=== PATIENT | male | born 1960 | race Caucasian/White ===

== ENCOUNTER 2018-11-12 21:59 | Inpatient (IN) | payer OTHER ==
[~2018-11-12] VITALS: Ht 172.7 cm; Wt 87.0 kg
[2018-11-12] MEDS ORDERED: LORazepam 2 MG/ML, 1ML IVPush ONE (22:30)
[2018-11-12] MEDS ORDERED: SODIUM CHLORIDE FLUSH 10ML SYR IVF ONE (22:30)
[2018-11-12] MEDS ORDERED: LORazepam 2 MG/ML, 1ML ONE (22:37)
[2018-11-12 22:43] LABS: MEAN CORPUSCULAR HGB CONC 33.9 g/dL (33.2-36.2); MEAN CORPUSCULAR VOLUME 91.2 fL (81-97); MEAN PLATELET VOLUME 9.3 fL (7.4-10.4); PLATELET COUNT 105 x10^3/uL (130-400)
[2018-11-12 22:52] LABS: INTERNATIONAL NORMALIZED RATIO 1.24 (0.93-1.1); PROTHROMBIN TIME 12.9 Seconds (9.6-11.5)
[2018-11-12 22:54] LABS: ALANINE AMINOTRANSFERASE 46 U/L (12-78); ALBUMIN 2.9 g/dL (3.4-5.0); ANION GAP 8 mmol/L (5-15); CALCIUM 8.1 mg/dL (8.5-10.1); CHLORIDE 103 mmol/L (98-107); CREATININE 0.94 mg/dL (0.7-1.3)
[2018-11-12 22:56] LABS: ALKALINE PHOSPHATASE 182 U/L (45-117); BILIRUBIN,TOTAL 1.1 mg/dL (0.2-1.0); TOTAL PROTEIN 6.5 g/dL (6.4-8.2)
[2018-11-12 23:05] LABS: BASOPHILS # (AUTO) 0.03 x10^3/uL (0-0.1); BASOPHILS % (AUTO) 0 % (0-1); EOSINOPHILS # (AUTO) 0.24 x10^3/uL (0-0.4); EOSINOPHILS % (AUTO) 3 % (1-7); LYMPHOCYTES # (AUTO) 0.87 x10^3/uL (1-3.4); LYMPHOCYTES % (AUTO) 11 % (22-44); MD SCAN; MONOCYTES # (AUTO) 0.99 x10^3/uL (0.2-0.8); MONOCYTES % (AUTO) 12 % (2-9); NEUTROPHILS # (AUTO) 6.05 x10^3/uL (1.8-6.8); NEUTROPHILS % (AUTO) 74 % (42-75)
[2018-11-12] MEDS ORDERED: SODIUM CHLORIDE 0.9% 1,000 ML IV SCH (23:32)
[2018-11-13] MEDS ORDERED: ACETAMINOPHEN 325 MG TABLET PO PRN
[2018-11-13] MEDS ORDERED: ONDANSETRON 2MG/ML, 2ML IVPush PRN
[2018-11-13] MEDS ORDERED: LORazepam 2 MG/ML, 1ML IVPush PRN
[2018-11-13] MEDS ORDERED: ONDANSETRON ODT 4 MG PO PRN
[2018-11-13 00:30] VITALS: BP 141/83
[2018-11-13] MEDS ORDERED: THIAMINE 200 MG, MVI ADULT 10 ML, FOLIC ACID 1 MG in D5%-0.9% NACL 1,000 ML IV SCH (01:00)
[2018-11-13 02:58] VITALS: BP 141/83
[2018-11-13 05:41] LABS: ALBUMIN 2.6 g/dL (3.4-5.0); ANION GAP 7 mmol/L (5-15); CALCIUM 7.7 mg/dL (8.5-10.1); CHLORIDE 105 mmol/L (98-107)
[2018-11-13 05:45] LABS: ALANINE AMINOTRANSFERASE 42 U/L (12-78); ALKALINE PHOSPHATASE 163 U/L (45-117); BILIRUBIN,TOTAL 1.4 mg/dL (0.2-1.0); CREATININE 0.82 mg/dL (0.7-1.3); TOTAL PROTEIN 5.9 g/dL (6.4-8.2)
[2018-11-13 05:46] LABS: MEAN CORPUSCULAR HEMOGLOBIN 31.5 pg (27.5-34.5); MEAN CORPUSCULAR HGB CONC 34.2 g/dL (33.2-36.2); MEAN CORPUSCULAR VOLUME 92.1 fL (81-97); MEAN PLATELET VOLUME 9.2 fL (7.4-10.4); PLATELET COUNT 94 x10^3/uL (130-400); RED BLOOD COUNT 2.29 x10^6/uL (4.38-5.82); RED CELL DISTRIBUTION WIDTH 17.3 % (9.4-14.8)
[2018-11-13 06:15] LABS: BASOPHILS # (AUTO) 0.04 x10^3/uL (0-0.1); BASOPHILS % (AUTO) 1 % (0-1); EOSINOPHILS # (AUTO) 0.27 x10^3/uL (0-0.4); EOSINOPHILS % (AUTO) 4 % (1-7); LYMPHOCYTES # (AUTO) 0.68 x10^3/uL (1-3.4); LYMPHOCYTES % (AUTO) 9 % (22-44); MD SCAN; MONOCYTES % (AUTO) 14 % (2-9); NEUTROPHILS # (AUTO) 5.26 x10^3/uL (1.8-6.8); NEUTROPHILS % (AUTO) 73 % (42-75)
[2018-11-13] MEDS ORDERED: PANTOPRAZOLE 40 MG IV IVPush SCH (07:30)
[2018-11-13 07:59] VITALS: BP 128/76
[2018-11-13] MEDS ORDERED: LORazepam 0.5MG TABLET PO PRN (08:30)
[2018-11-13] MEDS ORDERED: LORazepam 1MG TABLET PO PRN ×2 (08:30)
[2018-11-13] MEDS ORDERED: LORazepam 2 MG/ML, 1ML IV PRN ×3 (08:30)
[2018-11-13] MEDS ORDERED: MULTIVITAMIN 1 TABLET PO SCH (10:00)
[2018-11-13] MEDS: LORazepam 2 MG/ML, 1ML IV PRN ×5 (10:03→22:19)
[2018-11-13 14:00] VITALS: BP 136/77
[2018-11-13 20:04] VITALS: BP 156/97
[2018-11-14] MEDS: LORazepam 2 MG/ML, 1ML IV PRN ×5 (00:20→07:50)
[2018-11-14 01:10] VITALS: BP 191/91
[2018-11-14] MEDS ORDERED: CHLORDIAZEPOXIDE 25 MG CAPSULE PO PRN (01:30)
[2018-11-14] MEDS ORDERED: DIAZEPAM 5 MG/ML, 2ML IV PRN (02:00)
[2018-11-14] MEDS ORDERED: PANTOPROZOLE 40MG TABLET PO SCH (06:00)
[2018-11-14 07:26] VITALS: BP 168/95
[2018-11-14] MEDS ORDERED: DIAZEPAM 5 MG/ML, 2ML IV SCH (09:00)
[2018-11-14] MEDS ORDERED: PHARMACY INSTRUCTION MC PRN ×4 (09:00)
[2018-11-14] MEDS ORDERED: CHLORDIAZEPOXIDE 25 MG CAPSULE PO SCH (09:00)
[2018-11-14] MEDS ORDERED: PHENOBARBITAL SODIUM 680 MG in SODIUM CHLORIDE 0.9% 50 ML IVPB ONE (09:30)
[2018-11-14] MEDS ORDERED: PHENOBARBITAL ETOH DETOX PER PHARMACY MC PRN (11:00)
[2018-11-14] MEDS: POTASSIUM CHLORIDE 20 MEQ, MAGNESIUM SULFATE 1 GM, THIAMINE 200 MG, FOLIC ACID 1 MG, MV... IV SCH (11:48)
[2018-11-14] MEDS ORDERED: PHENOBARBITAL SODIUM 130 MG/ML, 1ML IV SCH (19:00)
[2018-11-15 04:00] VITALS: BP 151/75
[2018-11-15 04:49] LABS: BASOPHILS # (AUTO) 0.06 x10^3/uL (0-0.1); BASOPHILS % (AUTO) 1 % (0-1); EOSINOPHILS % (AUTO) 4 % (1-7); LYMPHOCYTES # (AUTO) 0.82 x10^3/uL (1-3.4); LYMPHOCYTES % (AUTO) 10 % (22-44); MD NO; MEAN CORPUSCULAR HEMOGLOBIN 31.1 pg (27.5-34.5); MEAN CORPUSCULAR HGB CONC 33.4 g/dL (33.2-36.2); MEAN CORPUSCULAR VOLUME 93.3 fL (81-97); MEAN PLATELET VOLUME 9.2 fL (7.4-10.4); MONOCYTES % (AUTO) 16 % (2-9); NEUTROPHILS # (AUTO) 5.95 x10^3/uL (1.8-6.8); NEUTROPHILS % (AUTO) 71 % (42-75); PLATELET COUNT 124 x10^3/uL (130-400); RED BLOOD COUNT 2.69 x10^6/uL (4.38-5.82); RED CELL DISTRIBUTION WIDTH 18.4 % (9.4-14.8)
[2018-11-15 05:00] LABS: CHLORIDE 106 mmol/L (98-107)
[2018-11-15 05:07] LABS: ALANINE AMINOTRANSFERASE 42 U/L (12-78); ALBUMIN 2.6 g/dL (3.4-5.0); ALKALINE PHOSPHATASE 158 U/L (45-117); ANION GAP 6 mmol/L (5-15); BILIRUBIN,TOTAL 1.3 mg/dL (0.2-1.0); CALCIUM 7.6 mg/dL (8.5-10.1); CREATININE 0.81 mg/dL (0.7-1.3); TOTAL PROTEIN 6.1 g/dL (6.4-8.2)
[2018-11-15] MEDS ORDERED: PHENOBARBITAL SODIUM 65 MG/ML, 1ML IV SCH (07:00)
[2018-11-15] MEDS ORDERED: PHENOBARBITAL SODIUM 65 MG/ML, 1ML IM SCH (08:00)
[2018-11-15] MEDS: POTASSIUM CHLORIDE 20 MEQ, MAGNESIUM SULFATE 1 GM, THIAMINE 200 MG, FOLIC ACID 1 MG, MV... IV SCH (09:26)
[2018-11-15 11:38] VITALS: BP 121/75
[2018-11-15 18:28] VITALS: BP 119/72
[2018-11-15] MEDS: PHENOBARBITAL SODIUM 65 MG/ML, 1ML IM SCH (18:38)
[2018-11-16 00:31] VITALS: BP 123/77
[2018-11-16 05:52] LABS: ANION GAP 7 mmol/L (5-15); CALCIUM 7.8 mg/dL (8.5-10.1); CHLORIDE 108 mmol/L (98-107)
[2018-11-16 05:54] LABS: CREATININE 0.77 mg/dL (0.7-1.3)
[2018-11-16 08:00] VITALS: BP 117/69
[2018-11-16] MEDS ORDERED: POTASSIUM CHLORIDE 10% 40 MEQ/30 ML UDC PO ONE (08:00)
[2018-11-16] MEDS: PHENOBARBITAL SODIUM 65 MG/ML, 1ML IM SCH (09:38)
[2018-11-16] MEDS: PANTOPRAZOLE 20MG TABLET PO SCH ×2 (09:39→21:19)
[2018-11-16] MEDS: LACTULOSE 10 GM/15 ML UDC PO SCH ×2 (09:39→21:19)
[2018-11-16] MEDS: POTASSIUM CHLORIDE 20 MEQ, MAGNESIUM SULFATE 1 GM, THIAMINE 200 MG, FOLIC ACID 1 MG, MV... IV SCH (09:39)
[2018-11-16 17:15] VITALS: BP 116/74
[2018-11-16 19:04] VITALS: BP 119/77
[2018-11-16] MEDS: PHENOBARBITAL 20 MG/5 ML ORAL SOL PO SCH (21:19)
[2018-11-17 00:13] VITALS: BP 127/76
[2018-11-17 05:52] LABS: ALBUMIN 2.6 g/dL (3.4-5.0); ANION GAP 6 mmol/L (5-15); CALCIUM 7.4 mg/dL (8.5-10.1); CHLORIDE 108 mmol/L (98-107)
[2018-11-17 05:57] LABS: ALANINE AMINOTRANSFERASE 45 U/L (12-78); ALKALINE PHOSPHATASE 205 U/L (45-117); BILIRUBIN,TOTAL 1.3 mg/dL (0.2-1.0); TOTAL PROTEIN 6.3 g/dL (6.4-8.2)
[2018-11-17 06:09] LABS: BASOPHILS # (AUTO) 0.06 x10^3/uL (0-0.1); BASOPHILS % (AUTO) 1 % (0-1); EOSINOPHILS # (AUTO) 0.26 x10^3/uL (0-0.4); EOSINOPHILS % (AUTO) 4 % (1-7); LYMPHOCYTES # (AUTO) 0.83 x10^3/uL (1-3.4); LYMPHOCYTES % (AUTO) 11 % (22-44); MD SCAN; MEAN CORPUSCULAR HEMOGLOBIN 30.8 pg (27.5-34.5); MEAN CORPUSCULAR HGB CONC 33.7 g/dL (33.2-36.2); MEAN CORPUSCULAR VOLUME 91.5 fL (81-97); MEAN PLATELET VOLUME 9.5 fL (7.4-10.4); MONOCYTES # (AUTO) 1.36 x10^3/uL (0.2-0.8); MONOCYTES % (AUTO) 18 % (2-9); NEUTROPHILS # (AUTO) 4.88 x10^3/uL (1.8-6.8); NEUTROPHILS % (AUTO) 66 % (42-75); PLATELET COUNT 141 x10^3/uL (130-400); RED BLOOD COUNT 2.64 x10^6/uL (4.38-5.82)
[2018-11-17] MEDS ORDERED: ACETAMINOPHEN 325 MG TABLET PO PRN (09:00)
[2018-11-17] MEDS ORDERED: ACETAMINOPHEN 325 MG TABLET ONE (09:04)
[2018-11-17 09:16] VITALS: BP 109/71
[2018-11-17] MEDS: PHENOBARBITAL 20 MG/5 ML ORAL SOL PO SCH ×2 (09:18→22:20)
[2018-11-17] MEDS: THIAMINE 100MG TABLET PO SCH (09:18)
[2018-11-17] MEDS: LACTULOSE 10 GM/15 ML UDC PO SCH ×3 (09:18→22:20)
[2018-11-17] MEDS: FOLIC ACID 1 MG TABLET PO SCH (09:19)
[2018-11-17] MEDS: MULTIVITAMIN 1 TABLET PO SCH (09:19)
[2018-11-17] MEDS: PANTOPRAZOLE 20MG TABLET PO SCH ×2 (09:19→22:20)
[2018-11-17 13:22] VITALS: BP 101/68
[2018-11-17 14:33] LABS: OCCULT BLOOD POSITIVE (NEGATIVE)
[2018-11-17 18:50] VITALS: BP 125/69
[2018-11-18 01:03] VITALS: BP 121/74
[2018-11-18 06:10] LABS: MEAN CORPUSCULAR HEMOGLOBIN 29.5 pg (27.5-34.5); MEAN CORPUSCULAR HGB CONC 32.6 g/dL (33.2-36.2); MEAN CORPUSCULAR VOLUME 90.3 fL (81-97); MEAN PLATELET VOLUME 9.4 fL (7.4-10.4); PLATELET COUNT 152 x10^3/uL (130-400); RED BLOOD COUNT 2.68 x10^6/uL (4.38-5.82); RED CELL DISTRIBUTION WIDTH 17.9 % (9.4-14.8)
[2018-11-18 06:20] LABS: ALBUMIN 2.7 g/dL (3.4-5.0); ANION GAP 6 mmol/L (5-15); CALCIUM 7.9 mg/dL (8.5-10.1); CHLORIDE 107 mmol/L (98-107); CREATININE 0.86 mg/dL (0.7-1.3)
[2018-11-18 06:44] LABS: BASOPHILS # (AUTO) 0.07 x10^3/uL (0-0.1); BASOPHILS % (AUTO) 1 % (0-1); EOSINOPHILS # (AUTO) 0.19 x10^3/uL (0-0.4); EOSINOPHILS % (AUTO) 2 % (1-7); LYMPHOCYTES # (AUTO) 0.79 x10^3/uL (1-3.4); LYMPHOCYTES % (AUTO) 10 % (22-44); MD SCAN; MONOCYTES # (AUTO) 1.53 x10^3/uL (0.2-0.8); MONOCYTES % (AUTO) 20 % (2-9); NEUTROPHILS # (AUTO) 5.11 x10^3/uL (1.8-6.8); NEUTROPHILS % (AUTO) 67 % (42-75)
[2018-11-18 07:22] VITALS: BP 117/70
[2018-11-18] MEDS: PHENOBARBITAL 20 MG/5 ML ORAL SOL PO SCH ×2 (08:11→23:29)
[2018-11-18] MEDS: LACTULOSE 10 GM/15 ML UDC PO SCH ×3 (08:11→22:21)
[2018-11-18] MEDS: THIAMINE 100MG TABLET PO SCH (08:11)
[2018-11-18] MEDS: FOLIC ACID 1 MG TABLET PO SCH (08:11)
[2018-11-18] MEDS: PANTOPRAZOLE 20MG TABLET PO SCH ×2 (08:11→22:21)
[2018-11-18] MEDS: MULTIVITAMIN 1 TABLET PO SCH (08:11)
[2018-11-18 12:26] VITALS: BP 110/68
[2018-11-18] MEDS ORDERED: IRON SUCROSE COMPLEX 100MG/5ML IV ONE (12:30)
[2018-11-18 18:50] VITALS: BP 132/78
[2018-11-18] MEDS ORDERED: PHENOBARBITAL 20 MG/5 ML ORAL SOL PO SCH (19:00)
[2018-11-19 01:00] VITALS: BP 145/90
[2018-11-19 07:32] VITALS: BP 131/92
[2018-11-19] MEDS: MULTIVITAMIN 1 TABLET PO SCH (08:18)
[2018-11-19] MEDS: LACTULOSE 10 GM/15 ML UDC PO SCH (08:18)
[2018-11-19] MEDS: PANTOPRAZOLE 20MG TABLET PO SCH (08:19)
[2018-11-19] MEDS: FOLIC ACID 1 MG TABLET PO SCH (08:19)
[2018-11-19] MEDS: THIAMINE 100MG TABLET PO SCH (08:19)
[2018-11-19] MEDS: PHENOBARBITAL 20 MG/5 ML ORAL SOL PO SCH (12:29)
[2018-11-19 12:37] VITALS: BP 115/72
[2018-11-19 13:28] LABS: ALANINE AMINOTRANSFERASE 48 U/L (12-78); ALBUMIN 2.8 g/dL (3.4-5.0); ANION GAP 8 mmol/L (5-15); CALCIUM 8.1 mg/dL (8.5-10.1); CHLORIDE 105 mmol/L (98-107); CREATININE 0.99 mg/dL (0.7-1.3)
[2018-11-19 13:30] LABS: ALKALINE PHOSPHATASE 218 U/L (45-117); BILIRUBIN,TOTAL 0.7 mg/dL (0.2-1.0); TOTAL PROTEIN 6.9 g/dL (6.4-8.2)
[2018-11-19] MEDS ORDERED: LACT10SO5 PO (14:01)
[2018-11-19] MEDS ORDERED: THIA100T67 PO (14:01)
[2018-11-19] MEDS ORDERED: PANT20TA3 PO (14:01)
[2018-11-19] MEDS ORDERED: FERR-51 PO (14:02)
[2018-11-19] MEDS ORDERED: PHENOBARBITAL 20 MG/5 ML ORAL SOL PO SCH ×2 (19:00→21:00)
== END 2018-11-19 14:57 | disposition left against medical advice (07) | DRG 811 ==
LOC: SUATTDRO 23:23 → ED 23:28 → EDIP 23:32 → ED 23:59 → 4NOR 11-13 00:40 → CCU 11-14 08:32 → 3NE 11-15 11:32
PROVIDERS: ADMIT Hospitalist; ATTEND Hospitalist
DX: D50.9 Iron deficiency anemia, unspecified (principal); G93.41 Metabolic encephalopathy; E87.1 Hypo-osmolality and hyponatremia; F10.231 Alcohol dependence with withdrawal delirium; D53.9 Nutritional anemia, unspecified; K70.40 Alcoholic hepatic failure without coma; D69.6 Thrombocytopenia, unspecified; E87.6 Hypokalemia; I10 Essential (primary) hypertension; K21.9 Gastro-esophageal reflux disease without esophagitis; K76.0 Fatty (change of) liver, not elsewhere classified; Z78.1 Physical restraint status; Z86.010 Personal history of colon polyps; Z91.14 Patient's other noncompliance with medication regimen; Y90.9 Presence of alcohol in blood, level not specified; Z53.21 Procedure and treatment not carried out due to patient leaving prior to being seen by health care provider
CPT/HCPCS: 36415; 99285; J7042; 71045; 76705; 80048; 80053; 80307; 82040; 82140; 82272; 82728; 83540; 83550; 83735; 84100; 84466; 85025; 85610; 85730; 86850; 86900; 87081; 96374; G0378; J1756; J2560; J3360; J3411; J3475; J3480; C9113; J2060; J7030

== ENCOUNTER 2018-11-19 20:03 | Emergency (ER) | payer OTHER ==
[~2018-11-19] VITALS: Ht 172.7 cm; Wt 92.6 kg
[~2018-11-19 20:03] MED LIST: FERR-51 PO; LACT10SO5 PO; PANT20TA3 PO; THIA100T67 PO
[2018-11-19] MEDS ORDERED: SODIUM CHLORIDE FLUSH 10ML SYR IVF ONE (20:30)
--- NOTE | 2018-11-19 20:54 | NUR ---
ASSUMED CARE OF PATIENT. PATIENT REPORTS HE LEFT AMA TODAY. PT WAS ADMITTED FOR ETOH WD. PT SAID HE WENT HOME AND FELT LIKE HE WAS WOBBLY AND FORGETTING WHERE HE PUT THINGS. VS STABLE. CARDIAC MONTIOR ON. NSR NOTED. CALL LIGHT IN PLACE. WILL CONTINUE TO MONITOR.
[2018-11-19 21:21] LABS: BASOPHILS # (AUTO) 0.01 x10^3/uL (0-0.1); BASOPHILS % (AUTO) 0 % (0-1); EOSINOPHILS # (AUTO) 0.24 x10^3/uL (0-0.4); EOSINOPHILS % (AUTO) 3 % (1-7); LYMPHOCYTES # (AUTO) 0.67 x10^3/uL (1-3.4); LYMPHOCYTES % (AUTO) 8 % (22-44); MD NO; MEAN CORPUSCULAR HEMOGLOBIN 28.6 pg (27.5-34.5); MEAN CORPUSCULAR HGB CONC 31.6 g/dL (33.2-36.2); MEAN CORPUSCULAR VOLUME 90.3 fL (81-97); MEAN PLATELET VOLUME 9.7 fL (7.4-10.4); MONOCYTES # (AUTO) 1.16 x10^3/uL (0.2-0.8); MONOCYTES % (AUTO) 14 % (2-9); NEUTROPHILS # (AUTO) 6.12 x10^3/uL (1.8-6.8); NEUTROPHILS % (AUTO) 75 % (42-75); PLATELET COUNT 207 x10^3/uL (130-400); RED BLOOD COUNT 2.89 x10^6/uL (4.38-5.82); RED CELL DISTRIBUTION WIDTH 19.4 % (9.4-14.8)
[2018-11-19 21:29] LABS: ALANINE AMINOTRANSFERASE 48 U/L (12-78); ALBUMIN 2.8 g/dL (3.4-5.0); ANION GAP 9 mmol/L (5-15); CALCIUM 8.1 mg/dL (8.5-10.1); CHLORIDE 107 mmol/L (98-107)
[2018-11-19 21:32] LABS: ALKALINE PHOSPHATASE 206 U/L (45-117); BILIRUBIN,TOTAL 0.6 mg/dL (0.2-1.0); CREATININE 0.97 mg/dL (0.7-1.3); TOTAL PROTEIN 6.7 g/dL (6.4-8.2)
--- NOTE | 2018-11-19 21:51 | NUR ---
pt resting in room. no acute distress noted. call light in place. will continue to monitor.
--- NOTE | 2018-11-19 22:34 | NUR ---
DR ELIZABETH IN ROOM
--- NOTE | 2018-11-19 23:02 | NUR ---
PT ABLE TO WALK AROUND ROOM, DRESS SELF. PT IS A&O X4. VS STABLE. MD AWARE. WILL CONTINUE TO MONITOR.
--- NOTE | 2018-11-19 23:25 | NUR ---
PT ON THE PHONE TALKING WITH HIS EXWIFE PT NOW READY FOR A DISCHARGE.
[2018-11-19 23:42] VITALS: BP 121/72
== END 2018-11-19 23:44 | disposition home or self-care (01) ==
LOC: ED 22:51
DX: F10.20 Alcohol dependence, uncomplicated (principal); D63.8 Anemia in other chronic diseases classified elsewhere; I10 Essential (primary) hypertension; Y90.9 Presence of alcohol in blood, level not specified
CPT/HCPCS: 36415; 80053; 80307; 82140; 83690; 85025; 99283

== ENCOUNTER 2019-07-01 19:02 | Emergency (ER) | payer OTHER ==
[~2019-07-01] VITALS: Ht 172.7 cm; Wt 96.9 kg
--- NOTE | 2019-07-01 19:26 | NUR ---
PT TO ED FOR BLE EDEMA AND ERYTHEMA. PT ALSO EXHIBITS GENERALIZED SCABBING AND ERYTHEMA OVER BUE AND BLE AND TRUNK. PER PT AND FAMILY, PT RESTARTED DRINKING HEAVILY IN FEBRUARY/MARCH AFTER BEING SOBER FOR 3 MONTHS. PT DRINKS 7-8 BEERS/DAY, LAST DRINK 30 MIN AGO. PT CONNECTED TO MONITORS. VSS. AWAITING EDMD ASSESSMENT.
--- NOTE | 2019-07-01 20:00 | NUR ---
pt to imaging.
--- NOTE | 2019-07-01 20:16 | NUR ---
laboratory manager to bs.
[2019-07-01 20:31] LABS: BASOPHILS # (AUTO) 0.23 x10^3/uL (0-0.1); BASOPHILS % (AUTO) 3 % (0-1); EOSINOPHILS # (AUTO) 0.45 x10^3/uL (0-0.4); EOSINOPHILS % (AUTO) 5 % (1-7); LYMPHOCYTES # (AUTO) 0.93 x10^3/uL (1-3.4); LYMPHOCYTES % (AUTO) 10 % (22-44); MD NO; MEAN CORPUSCULAR HEMOGLOBIN 27.7 pg (27.5-34.5); MEAN CORPUSCULAR HGB CONC 32.3 g/dL (33.2-36.2); MEAN CORPUSCULAR VOLUME 85.7 fL (81-97); MEAN PLATELET VOLUME 8.4 fL (7.4-10.4); MONOCYTES # (AUTO) 1.16 x10^3/uL (0.2-0.8); MONOCYTES % (AUTO) 13 % (2-9); NEUTROPHILS # (AUTO) 6.19 x10^3/uL (1.8-6.8); NEUTROPHILS % (AUTO) 69 % (42-75); PLATELET COUNT 177 x10^3/uL (130-400); RED BLOOD COUNT 3.95 x10^6/uL (4.38-5.82); RED CELL DISTRIBUTION WIDTH 19.9 % (9.4-14.8)
[2019-07-01 20:38] LABS: ALANINE AMINOTRANSFERASE 37 U/L (12-78); ALBUMIN 2.6 g/dL (3.4-5.0); ANION GAP 9 mmol/L (5-15); CALCIUM 7.8 mg/dL (8.5-10.1); CHLORIDE 105 mmol/L (98-107); CREATININE 0.72 mg/dL (0.7-1.3)
[2019-07-01 20:39] LABS: INTERNATIONAL NORMALIZED RATIO 1.26 (0.93-1.1); PROTHROMBIN TIME 13.1 Seconds (9.6-11.5)
[2019-07-01 20:40] LABS: ALKALINE PHOSPHATASE 232 U/L (45-117); BILIRUBIN,TOTAL 0.9 mg/dL (0.2-1.0); TOTAL PROTEIN 7.2 g/dL (6.4-8.2)
--- NOTE | 2019-07-01 20:42 | NUR ---
new orders for add on labs received at this time. pt resting in room wtih family at bs. vs. no needs expressed. call light within reach. awaiting labs an us resutls.
[2019-07-01 20:45] VITALS: BP 124/77
--- NOTE | 2019-07-01 21:00 | NUR ---
all results back at this time. chart up for recheck.
== END 2019-07-01 21:41 | disposition home or self-care (01) ==
LOC: ED 21:15
DX: R60.0 Localized edema (principal); K70.30 Alcoholic cirrhosis of liver without ascites; L03.116 Cellulitis of left lower limb; L03.115 Cellulitis of right lower limb; F10.20 Alcohol dependence, uncomplicated; D53.9 Nutritional anemia, unspecified; I10 Essential (primary) hypertension
CPT/HCPCS: 36415; 71046; 80053; 85025; 85610; 85730; 93005; 99284

== ENCOUNTER 2019-08-23 17:50 | Inpatient (IN) | payer OTHER ==
[~2019-08-23] VITALS: Ht 172.7 cm; Wt 95.9 kg
[~2019-08-23 17:50] MED LIST changes: +LACT10SO24 PO; -LACT10SO5 PO
[2019-08-23] MEDS ORDERED: SODIUM CHLORIDE FLUSH 10ML SYR IVF ONE (18:30)
[2019-08-23] MEDS ORDERED: MAGNESIUM SULFATE 1 GM, THIAMINE 100 MG, FOLIC ACID 1 MG, MVI ADULT 10 ML in SODIUM CHL... IV ONE (18:30)
--- NOTE | 2019-08-23 18:54 | NUR ---
REPORT GIVEN TO SAM
[2019-08-23 18:58] LABS: INTERNATIONAL NORMALIZED RATIO 1.26 (0.93-1.1); PROTHROMBIN TIME 13.1 Seconds (9.6-11.5)
--- NOTE | 2019-08-23 19:00 | NUR ---
THIS IS A 59Y M THAT COMES IN FOR ETOH WITHDRAWL PT STS HE WANTS TO QUIT DRINKING. PT DRINKS ABOUT 6 BEERS DAILY LAST DRINK WAS "A FEW HOURS AGO." PT EDUCATED ON NEED FOR URINE SAMPLE, STS JUST WENT AND CAN'T GO AGAIN. PT CONNECTED TO ALL MONITORING VSS, CALL LIGHT IN REACH, AT BEDSIDE. NO FURTHER NEEDS EXPRESSED AT THIS TIME
[2019-08-23 19:01] LABS: ALANINE AMINOTRANSFERASE 25 U/L (12-78); ALBUMIN 2.5 g/dL (3.4-5.0); ANION GAP 7 mmol/L (5-15); CALCIUM 7.8 mg/dL (8.5-10.1); CHLORIDE 106 mmol/L (98-107); CREATININE 0.78 mg/dL (0.7-1.3)
[2019-08-23 19:05] LABS: ALKALINE PHOSPHATASE 194 U/L (45-117); BILIRUBIN,TOTAL 0.7 mg/dL (0.2-1.0); TOTAL PROTEIN 6.9 g/dL (6.4-8.2)
[2019-08-23 19:09] LABS: MD YES; MEAN CORPUSCULAR HEMOGLOBIN 24.4 pg (27.5-34.5); MEAN CORPUSCULAR HGB CONC 31.1 g/dL (33.2-36.2); MEAN CORPUSCULAR VOLUME 78.3 fL (81-97); MEAN PLATELET VOLUME 8.5 fL (7.4-10.4); PLATELET COUNT 185 x10^3/uL (130-400); RED BLOOD COUNT 3.11 x10^6/uL (4.38-5.82); RED CELL DISTRIBUTION WIDTH 21.3 % (9.4-14.8)
[2019-08-23 19:25] LABS: BAND#(MANUAL) 0.13 x10^3/uL; BANDS%(MANUAL) 2 % (0-7); BASOS#(MANUAL) 0.19 x10^3/uL (0-0.1); BASOS% (MANUAL) 3 % (0-1); EOS#(MANUAL) 0.44 x10^3/uL (0.0-0.4); EOS% (MANUAL) 7 % (1-7); LYMPH#(MANUAL) 0.76 x10^3/uL (1-3.4); LYMPHS% (MANUAL) 12 % (22-44); MONOS#(MANUAL) 0.69 x10^3/uL (0.3-2.7); MONOS% (MANUAL) 11 % (2-9); SEGS% (MANUAL) 65 % (42-75)
[2019-08-23 19:26] LABS: ANISOCYTOSIS 1+; MICROCYTOSIS 1+
[2019-08-23 19:27] LABS: HYPOCHROMIA 1+; TARGET CELLS 1+
[2019-08-23] MEDS ORDERED: FUROSEMIDE 40 MG/4 ML ONE (19:27)
[2019-08-23 19:28] LABS: <PLATELET ESTIMATE> ADEQUATE; <PLT MORPHOLOGY> NORMAL PLT MORPH; OVALOCYTES 1+
[2019-08-23] MEDS ORDERED: FUROSEMIDE 40 MG/4 ML IV ONE (19:30)
--- NOTE | 2019-08-23 19:33 | NUR ---
PT TO US AT THIS TIME
[2019-08-23 19:34] LABS: ABSOLUTE RETICS # 0.058 x10^6/uL (0.5-1.5); RED BLOOD COUNT 3.12 x10^6/uL (4.38-5.82); RETICULOCYTE COUNT % 1.87 % (0.5-1.5)
[2019-08-23 21:33] VITALS: BP 137/80
[2019-08-23 22:47] LABS: MICROSCOPIC NOT IND
[2019-08-23 22:55] LABS: CULTURE INDICATED? NO
[2019-08-23] MEDS ORDERED: POTASSIUM CHLORIDE 20 MEQ, MAGNESIUM SULFATE 2 GM, THIAMINE 200 MG, MVI ADULT 10 ML, FO... IV SCH (23:48)
[2019-08-24] VITALS (7 sets, daily range): BP systolic 124–142; BP diastolic 63–78
[2019-08-24] MEDS ORDERED: LABETALOL 5 MG/ML SYR. (IV ONLY) IVPush PRN
[2019-08-24] MEDS ORDERED: ONDANSETRON 2MG/ML, 2ML IVPush PRN
[2019-08-24] MEDS: PANTOPROZOLE 40MG TABLET PO SCH ×3 (00:53→17:15)
[2019-08-24 06:47] LABS: MEAN CORPUSCULAR HEMOGLOBIN 24.1 pg (27.5-34.5); MEAN CORPUSCULAR HGB CONC 30.5 g/dL (33.2-36.2); MEAN CORPUSCULAR VOLUME 78.8 fL (81-97); MEAN PLATELET VOLUME 8.8 fL (7.4-10.4); PLATELET COUNT 154 x10^3/uL (130-400); RED BLOOD COUNT 2.82 x10^6/uL (4.38-5.82); RED CELL DISTRIBUTION WIDTH 21.7 % (9.4-14.8)
[2019-08-24 06:50] LABS: CHLORIDE 107 mmol/L (98-107)
[2019-08-24 06:51] LABS: ALANINE AMINOTRANSFERASE 22 U/L (12-78); ALBUMIN 2.2 g/dL (3.4-5.0); ANION GAP 9 mmol/L (5-15); CALCIUM 7.3 mg/dL (8.5-10.1); CREATININE 0.72 mg/dL (0.7-1.3)
[2019-08-24 06:53] LABS: ALKALINE PHOSPHATASE 167 U/L (45-117); BILIRUBIN,TOTAL 1.2 mg/dL (0.2-1.0); TOTAL PROTEIN 6.3 g/dL (6.4-8.2)
[2019-08-24] MEDS ORDERED: LORazepam 1MG TABLET PO PRN ×2 (07:30)
[2019-08-24] MEDS ORDERED: LORazepam 2 MG/ML, 1ML IV PRN ×5 (07:30)
[2019-08-24] MEDS ORDERED: IRON SUCROSE COMPLEX 100MG/5ML ONE (07:46)
[2019-08-24 07:52] LABS: BASOPHILS # (AUTO) 0.04 x10^3/uL (0-0.1); BASOPHILS % (AUTO) 1 % (0-1); EOSINOPHILS # (AUTO) 0.29 x10^3/uL (0-0.4); EOSINOPHILS % (AUTO) 4 % (1-7); LYMPHOCYTES # (AUTO) 0.92 x10^3/uL (1-3.4); LYMPHOCYTES % (AUTO) 14 % (22-44); MD MORPH REVIEW ONLY; MONOCYTES # (AUTO) 1.12 x10^3/uL (0.2-0.8); MONOCYTES % (AUTO) 17 % (2-9); NEUTROPHILS # (AUTO) 4.34 x10^3/uL (1.8-6.8); NEUTROPHILS % (AUTO) 65 % (42-75)
[2019-08-24] MEDS ORDERED: FERROUS GLUCONATE 324 MG TABLET PO SCH (08:00)
[2019-08-24] MEDS: IRON SUCROSE COMPLEX 100MG/5ML IV SCH (08:07)
[2019-08-24 08:13] LABS: ANISOCYTOSIS 2+; HYPOCHROMIA 2+; MICROCYTOSIS 1+; OVALOCYTES 1+
[2019-08-24 08:14] LABS: <PLATELET ESTIMATE> ADEQUATE; <PLT MORPHOLOGY> NORMAL PLT MORPH
[2019-08-24] MEDS: LORazepam 0.5MG TABLET PO PRN ×2 (11:58→16:43)
[2019-08-24 15:06] LABS: OCCULT BLOOD NEGATIVE (NEGATIVE)
[2019-08-25] MEDS: MAGNESIUM SULFATE 2 GM, THIAMINE 200 MG, MVI ADULT 10 ML, FOLIC ACID 1 MG in D5%-0.9% N... IV SCH (00:23)
[2019-08-25 01:37] VITALS: BP 129/81
[2019-08-25] MEDS: LORazepam 1MG TABLET PO PRN ×5 (01:45→21:48)
[2019-08-25 04:28] LABS: ALBUMIN 2.3 g/dL (3.4-5.0); ANION GAP 6 mmol/L (5-15); CALCIUM 7.5 mg/dL (8.5-10.1); CHLORIDE 108 mmol/L (98-107)
[2019-08-25 04:31] LABS: ALANINE AMINOTRANSFERASE 25 U/L (12-78); ALKALINE PHOSPHATASE 178 U/L (45-117); BILIRUBIN,TOTAL 1.1 mg/dL (0.2-1.0); CREATININE 0.78 mg/dL (0.7-1.3); TOTAL PROTEIN 6.4 g/dL (6.4-8.2)
[2019-08-25 04:32] LABS: MEAN CORPUSCULAR HGB CONC 31.4 g/dL (33.2-36.2); MEAN CORPUSCULAR VOLUME 79.4 fL (81-97); MEAN PLATELET VOLUME 8.8 fL (7.4-10.4); PLATELET COUNT 138 x10^3/uL (130-400); RED BLOOD COUNT 3.16 x10^6/uL (4.38-5.82); RED CELL DISTRIBUTION WIDTH 22.1 % (9.4-14.8)
[2019-08-25 05:41] LABS: BASOPHILS # (AUTO) 0.82 x10^3/uL (0-0.1); BASOPHILS % (AUTO) 12 % (0-1); EOSINOPHILS % (AUTO) 4 % (1-7); LYMPHOCYTES # (AUTO) 0.83 x10^3/uL (1-3.4); LYMPHOCYTES % (AUTO) 12 % (22-44); MD SCAN; MONOCYTES # (AUTO) 0.92 x10^3/uL (0.2-0.8); MONOCYTES % (AUTO) 13 % (2-9); NEUTROPHILS # (AUTO) 4.19 x10^3/uL (1.8-6.8); NEUTROPHILS % (AUTO) 59 % (42-75)
[2019-08-25 07:51] VITALS: BP 142/77
[2019-08-25] MEDS ORDERED: POTASSIUM CHLORIDE 20 MEQ TAB.ER.PRT PO ONE (08:30)
[2019-08-25] MEDS: IRON SUCROSE COMPLEX 100MG/5ML IV SCH (10:04)
[2019-08-25] MEDS: PANTOPROZOLE 40MG TABLET PO SCH ×2 (10:05→17:47)
[2019-08-25 16:06] VITALS: BP 114/69
[2019-08-25] MEDS: LORazepam 0.5MG TABLET PO PRN (17:47)
[2019-08-25 19:52] VITALS: BP 124/78
[2019-08-26 01:20] VITALS: BP 118/71
[2019-08-26] MEDS: MAGNESIUM SULFATE 2 GM, THIAMINE 200 MG, MVI ADULT 10 ML, FOLIC ACID 1 MG in D5%-0.9% N... IV SCH (02:01)
[2019-08-26] MEDS: LORazepam 1MG TABLET PO PRN (02:15)
[2019-08-26 06:47] LABS: MEAN CORPUSCULAR HEMOGLOBIN 24.7 pg (27.5-34.5); MEAN CORPUSCULAR HGB CONC 30.7 g/dL (33.2-36.2); MEAN CORPUSCULAR VOLUME 80.6 fL (81-97); MEAN PLATELET VOLUME 9.4 fL (7.4-10.4); PLATELET COUNT 127 x10^3/uL (130-400); RED BLOOD COUNT 3.04 x10^6/uL (4.38-5.82); RED CELL DISTRIBUTION WIDTH 22.3 % (9.4-14.8)
[2019-08-26 07:00] LABS: ANION GAP 8 mmol/L (5-15); CALCIUM 7.6 mg/dL (8.5-10.1); CHLORIDE 107 mmol/L (98-107)
[2019-08-26 07:01] LABS: CREATININE 0.85 mg/dL (0.7-1.3)
[2019-08-26 07:39] LABS: BASOPHILS # (AUTO) 0.01 x10^3/uL (0-0.1); BASOPHILS % (AUTO) 0 % (0-1); EOSINOPHILS # (AUTO) 0.54 x10^3/uL (0-0.4); EOSINOPHILS % (AUTO) 7 % (1-7); LYMPHOCYTES # (AUTO) 0.96 x10^3/uL (1-3.4); LYMPHOCYTES % (AUTO) 12 % (22-44); MD SCAN; MONOCYTES # (AUTO) 1.04 x10^3/uL (0.2-0.8); MONOCYTES % (AUTO) 13 % (2-9); NEUTROPHILS # (AUTO) 5.24 x10^3/uL (1.8-6.8); NEUTROPHILS % (AUTO) 67 % (42-75)
[2019-08-26] MEDS ORDERED: POTASSIUM CHLORIDE 20 MEQ TAB.ER.PRT PO ONE (08:00)
[2019-08-26 08:10] VITALS: BP 130/79
[2019-08-26] MEDS: FOLIC ACID 1 MG TABLET PO SCH (08:41)
[2019-08-26] MEDS: MULTIVITAMIN 1 TABLET PO SCH (08:42)
[2019-08-26] MEDS: THIAMINE 100MG TABLET PO SCH (08:42)
[2019-08-26] MEDS: IRON SUCROSE COMPLEX 100MG/5ML IV SCH (08:49)
[2019-08-26] MEDS: PANTOPROZOLE 40MG TABLET PO SCH ×2 (08:50→17:25)
[2019-08-26 14:38] VITALS: BP 135/82
[2019-08-26 19:37] VITALS: BP 139/88
[2019-08-26] MEDS: LORazepam 0.5MG TABLET PO PRN (22:03)
[2019-08-26 23:22] LABS: OCCULT BLOOD NEGATIVE (NEGATIVE)
[2019-08-27 01:23] VITALS: BP 142/83
[2019-08-27 07:39] VITALS: BP 129/76
[2019-08-27] MEDS: FOLIC ACID 1 MG TABLET PO SCH (09:35)
[2019-08-27] MEDS: MULTIVITAMIN 1 TABLET PO SCH (09:35)
[2019-08-27] MEDS: PANTOPROZOLE 40MG TABLET PO SCH (09:35)
[2019-08-27] MEDS: THIAMINE 100MG TABLET PO SCH (09:35)
[2019-08-27] MEDS: IRON SUCROSE COMPLEX 100MG/5ML IV SCH (09:35)
[2019-08-27] MEDS ORDERED: POTASSIUM CHLORIDE 20 MEQ TAB.ER.PRT PO ONE (11:30)
[2019-08-27 13:20] LABS: ANION GAP 6 mmol/L (5-15); CHLORIDE 108 mmol/L (98-107); CREATININE 0.85 mg/dL (0.7-1.3)
[2019-08-27] MEDS ORDERED: PANT40TA5 PO (14:02)
[2019-08-27] MEDS ORDERED: FERR325T18 PO (14:02)
[2019-08-27] MEDS ORDERED: THIA100T67 PO (14:02)
[2019-08-27] MEDS ORDERED: MULT1TAB60 PO (14:02)
[2019-08-27] MEDS ORDERED: FOLI-17 PO (14:02)
[2019-08-27 14:15] VITALS: BP 138/84
[2019-08-27] MEDS: LORazepam 0.5MG TABLET PO PRN (15:29)
== END 2019-08-27 17:59 | disposition home or self-care (01) | DRG 378 ==
LOC: ED 18:15 → EDIP 19:33 → 3N 21:10
PROVIDERS: ADMIT Family Medicine; ATTEND Family Medicine
PROC: 30233N1 Transfusion of Nonautologous Red Blood Cells into Peripheral Vein, Percutaneous Approach (ICD-10-PCS; principal; 2019-08-24)
DX: K29.21 Alcoholic gastritis with bleeding (principal); D68.9 Coagulation defect, unspecified; E46 Unspecified protein-calorie malnutrition; F10.239 Alcohol dependence with withdrawal, unspecified; D50.9 Iron deficiency anemia, unspecified; D69.6 Thrombocytopenia, unspecified; Z68.32 Body mass index [BMI] 32.0-32.9, adult; E83.42 Hypomagnesemia; E87.6 Hypokalemia; F17.200 Nicotine dependence, unspecified, uncomplicated; I11.9 Hypertensive heart disease without heart failure; K31.9 Disease of stomach and duodenum, unspecified; K70.9 Alcoholic liver disease, unspecified; K76.0 Fatty (change of) liver, not elsewhere classified; K80.20 Calculus of gallbladder without cholecystitis without obstruction; Z91.14 Patient's other noncompliance with medication regimen
CPT/HCPCS: 36415; 96365; 96366; 96375; 99285; J7042; 36430; 76700; 80048; 80053; 80307; 81003; 82140; 82272; 82607; 82728; 83540; 83550; 83735; 83880; 84100; 85014; 85018; 85025; 85045; 85610; 86850; 86900; 86923; 93005; 93306; 93970; G0378; J1756; J1940; J3411; J3475; J3480; J7030; P9016

== ENCOUNTER 2020-05-01 16:47 | Inpatient (IN) | payer OTHER ==
[~2020-05-01] VITALS: Ht 172.7 cm; Wt 94.6 kg
[~2020-05-01 16:47] MED LIST changes: +FERR325T18 PO; +FOLI-17 PO; +MULT-449 PO; +PANT40TA5 PO
--- NOTE | 2020-05-01 17:03 | NUR ---
REPORTS [facility] ON 04/20. KATE LOC. C/O LEFT HIP AND LEG PAIN. Addendum: 05/01/20 at 1719 by OSCAR LEFT LE WEEPING EDEMA. PLACED ON VITALS AND CARDIAC MONITORS, FALL PRECAUTIONS IN PLACE. CALL LIGHT WITHIN REACH.
[2020-05-01] MEDS ORDERED: ONDANSETRON 2MG/ML, 2ML ONE (17:25)
[2020-05-01] MEDS ORDERED: MORPHINE SULFATE 4 MG/ML, 1ML ONE (17:25)
[2020-05-01] MEDS ORDERED: MORPHINE SULFATE 4 MG/ML, 1ML IVPush PRN (17:30)
[2020-05-01] MEDS ORDERED: ONDANSETRON 2MG/ML, 2ML IVPush ONE (17:30)
[2020-05-01] MEDS ORDERED: CEFEPIME 1 GM in DEXTROSE 5% 50 ML IV ONE (17:30)
[2020-05-01] MEDS ORDERED: SODIUM CHLORIDE 0.9% 1,000ML IVBOLUS ONE ×2 (17:30→21:00)
[2020-05-01] MEDS ORDERED: VANCOMYCIN PER PHARMACY MC PRN (17:30)
[2020-05-01] MEDS ORDERED: DIPH,PERTUSS(ACELL),TET VAC/PF 0.5 ML IM-VACC ONE ×2 (17:30→17:50)
[2020-05-01 17:56] LABS: MEAN CORPUSCULAR HEMOGLOBIN 32.6 pg (27.5-34.5); MEAN CORPUSCULAR HGB CONC 33.3 g/dL (33.2-36.2); MEAN CORPUSCULAR VOLUME 97.8 fL (81-97); MEAN PLATELET VOLUME 9.2 fL (7.4-10.4); PLATELET COUNT 187 x10^3/uL (130-400); RED BLOOD COUNT 4.08 x10^6/uL (4.38-5.82); RED CELL DISTRIBUTION WIDTH 15.2 % (9.4-14.8)
[2020-05-01 18:00] LABS: ALANINE AMINOTRANSFERASE 31 U/L (12-78); ANION GAP 15 mmol/L (5-15); CALCIUM 8.4 mg/dL (8.5-10.1); CHLORIDE 93 mmol/L (98-107); CREATININE 1.48 mg/dL (0.7-1.3)
[2020-05-01] MEDS ORDERED: VANCOMYCIN 2,200 MG in SODIUM CHLORIDE 0.9% 500 ML IV ONE (18:00)
[2020-05-01 18:04] LABS: ALKALINE PHOSPHATASE 142 U/L (45-117); BILIRUBIN,TOTAL 4.7 mg/dL (0.2-1.0); TOTAL PROTEIN 7.1 g/dL (6.4-8.2); TROPONIN I < 0.015 ng/mL (0.000-0.045)
--- NOTE | 2020-05-01 18:21 | NUR ---
PT IN XRAY.
[2020-05-01 18:25] LABS: MD YES
[2020-05-01 18:29] LABS: BAND#(MANUAL) 1.41 x10^3/uL; BANDS%(MANUAL) 7 % (0-7); LYMPH#(MANUAL) 1.01 x10^3/uL (1-3.4); LYMPHS% (MANUAL) 5 % (22-44); MONOS#(MANUAL) 1.21 x10^3/uL (0.3-2.7); MONOS% (MANUAL) 6 % (2-9); SEG#(MANUAL) 16.48 x10^3/uL (1.8-6.8); SEGS% (MANUAL) 82 % (42-75)
[2020-05-01 18:30] LABS: ANISOCYTOSIS 1+
[2020-05-01 18:32] LABS: <PLATELET ESTIMATE> ADEQUATE; <PLT MORPHOLOGY> NORMAL PLT MORPH; PMNS WITH VACUOLES 1+; POLYCHROMASIA 1+; TOXIC GRAN 1+
--- NOTE | 2020-05-01 18:50 | NUR ---
PER PT'S EX WILNER, PT HAD BLOOD IN STOOL PRIOR TO ARRIVING TO ED. UPDATED ERMD.
--- NOTE | 2020-05-01 19:19 | NUR ---
TRANSPORTED TO CT.
--- NOTE | 2020-05-01 19:44 | NUR ---
WILNER MCGUIRE ([phone]), EX , OKAY TO CALL HER WITH UPDATE.
[2020-05-01] MEDS ORDERED: OMNIPAQUE 350 MG/ML, 100ML BOTTLE ONE (20:28)
--- NOTE | 2020-05-01 20:47 | NUR ---
PT RESTING ON GURNEY IN NAD, VSS. FALL PRECAUTIONS IN PLACE, CALL LIGHT WITHIN REACH.
--- NOTE | 2020-05-01 21:43 | NUR ---
REPORT GIVEN TO EFRA SMALL.
[2020-05-01 23:01] VITALS: BP 117/75
[2020-05-02] MEDS ORDERED: LACTATED RINGERS 1,000 ML IV SCH (02:00)
[2020-05-02] MEDS ORDERED: MELATONIN 5 MG TABLET PO PRN (02:00)
[2020-05-02] MEDS ORDERED: DOCUSATE 100 MG CAPSULE PO PRN (02:00)
[2020-05-02] MEDS ORDERED: LACTATED RINGERS 1,000 ML IVBOLUS ONE (02:00)
[2020-05-02] MEDS ORDERED: PHARMACY MAY ADJ FOR RENAL FX MC PRN (02:00)
[2020-05-02] MEDS ORDERED: GUAIFENESIN/DM 200-20MG, 10ML UDC PO PRN (02:00)
[2020-05-02] MEDS ORDERED: hydrALAzine 20 MG/ML, 1ML IVPush PRN (02:00)
[2020-05-02] MEDS ORDERED: ACETAMINOPHEN 325 MG TABLET PO PRN (02:00)
[2020-05-02] MEDS ORDERED: morphine SULFATE 10 MG/ML, 1ML IVPush PRN (02:00)
[2020-05-02] MEDS ORDERED: ONDANSETRON 2MG/ML, 2ML IVPush PRN (02:00)
[2020-05-02] MEDS ORDERED: LORazepam 2 MG/ML, 1ML IVPush PRN (02:00)
[2020-05-02] MEDS: AMPICILLIN/SULBACTAM 3 GM in SODIUM CHLORIDE 0.9% 100 ML IV SCH ×4 (02:49→21:18)
[2020-05-02] MEDS: HEPARIN 5,000 UNITS/ML, 1ML SQ SCH ×3 (02:49→18:04)
[2020-05-02] MEDS ORDERED: SODIUM CHLORIDE 0.9% 1,000 ML IV SCH (03:00)
[2020-05-02] MEDS ORDERED: LORazepam 2 MG/ML, 1ML IV PRN ×5 (03:00)
[2020-05-02] MEDS: PANTOPRAZOLE 40MG TABLET PO SCH (07:28)
[2020-05-02] MEDS ORDERED: PANTOPRAZOLE 40MG TABLET PO SCH (07:30)
[2020-05-02] MEDS: FERROUS SULFATE 325 MG TABLET PO SCH ×3 (08:25→21:18)
[2020-05-02] MEDS: THIAMINE 100MG TABLET PO SCH (08:25)
[2020-05-02] MEDS: MULTIVITAMIN 1 TABLET PO SCH (08:26)
[2020-05-02] MEDS ORDERED: FOLIC ACID 1 MG TABLET PO SCH (09:00)
[2020-05-02] MEDS ORDERED: VANCOMYCIN PER PHARMACY MC PRN (09:00)
[2020-05-02] MEDS ORDERED: PHARMACOKINETIC CONSULTATION MC ONE (09:30)
[2020-05-02] MEDS ORDERED: VANCOMYCIN 2,100 MG in SODIUM CHLORIDE 0.9% 500 ML IV ONE (09:30)
[2020-05-02] MEDS ORDERED: PHARMACOKINETIC MONITORING MC PRN (09:30)
[2020-05-02 09:31] VITALS: BP 101/65
[2020-05-02] MEDS: FOLIC ACID 1 MG TABLET PO SCH (10:23)
[2020-05-02] MEDS: MULTIVITAMINS/MINERALS TABLET PO SCH (10:23)
[2020-05-02 14:09] VITALS: BP 116/67
[2020-05-02] MEDS: OXYcodone/APAP 5/325MG TABLET PO PRN ×2 (14:52→21:18)
[2020-05-02 20:12] VITALS: BP 119/76
[2020-05-02] MEDS: SODIUM CHLORIDE 0.9% 1,000 ML IV SCH (21:35)
[2020-05-03 01:32] VITALS: BP 112/72
[2020-05-03 01:53] LABS: SODIUM,URINE RANDOM 8 mmol/L
[2020-05-03 03:05] LABS: OSMOLALITY,URINE 663 mOsm/kg (500-850)
[2020-05-03] MEDS: HEPARIN 5,000 UNITS/ML, 1ML SQ SCH ×3 (03:27→17:16)
[2020-05-03] MEDS: AMPICILLIN/SULBACTAM 3 GM in SODIUM CHLORIDE 0.9% 100 ML IV SCH ×2 (03:27→09:14)
[2020-05-03] MEDS: VANCOMYCIN 1,700 MG in SODIUM CHLORIDE 0.9% 250 ML IV SCH ×2 (04:03→21:23)
[2020-05-03] MEDS: OXYcodone/APAP 5/325MG TABLET PO PRN ×2 (04:10→21:23)
[2020-05-03 04:28] LABS: MEAN CORPUSCULAR HEMOGLOBIN 32.5 pg (27.5-34.5); MEAN CORPUSCULAR HGB CONC 33.2 g/dL (33.2-36.2); MEAN CORPUSCULAR VOLUME 97.9 fL (81-97); MEAN PLATELET VOLUME 8.5 fL (7.4-10.4); PLATELET COUNT 179 x10^3/uL (130-400); RED BLOOD COUNT 3.56 x10^6/uL (4.38-5.82); RED CELL DISTRIBUTION WIDTH 15.2 % (9.4-14.8)
[2020-05-03 04:43] LABS: ALBUMIN 1.6 g/dL (3.4-5.0); ANION GAP 9 mmol/L (5-15); CALCIUM 7.5 mg/dL (8.5-10.1); CHLORIDE 101 mmol/L (98-107)
[2020-05-03 04:48] LABS: ALANINE AMINOTRANSFERASE 42 U/L (12-78); ALKALINE PHOSPHATASE 182 U/L (45-117); CREATININE 0.99 mg/dL (0.7-1.3); TOTAL PROTEIN 6.2 g/dL (6.4-8.2)
[2020-05-03 05:45] LABS: MD YES
[2020-05-03 05:48] LABS: BAND#(MANUAL) 0.63 x10^3/uL; BANDS%(MANUAL) 3 % (0-7); EOS#(MANUAL) 0.42 x10^3/uL (0.0-0.4); EOS% (MANUAL) 2 % (1-7); LYMPH#(MANUAL) 0.21 x10^3/uL (1-3.4); LYMPHS% (MANUAL) 1 % (22-44); METAMYELOCYTES# (MANUAL) 0.21 x10^3/uL (0-0); METAMYELOCYTES% (MANUAL) 1 % (0-1); SEG#(MANUAL) 19.53 x10^3/uL (1.8-6.8); SEGS% (MANUAL) 93 % (42-75)
[2020-05-03 05:49] LABS: <PLATELET ESTIMATE> ADEQUATE; <PLT MORPHOLOGY> NORMAL PLT MORPH; ANISOCYTOSIS 1+; POLYCHROMASIA 1+
[2020-05-03 05:51] LABS: TOXIC GRAN 1+
[2020-05-03 06:28] VITALS: BP 121/70
[2020-05-03] MEDS ORDERED: SODIUM PHOSPHATE 10 MMOL in SODIUM CHLORIDE 0.9% 500 ML IV ONE (09:00)
[2020-05-03] MEDS: MULTIVITAMINS/MINERALS TABLET PO SCH (09:55)
[2020-05-03] MEDS: THIAMINE 100MG TABLET PO SCH (09:55)
[2020-05-03] MEDS: FOLIC ACID 1 MG TABLET PO SCH (09:55)
[2020-05-03] MEDS: MULTIVITAMIN 1 TABLET PO SCH (09:55)
[2020-05-03] MEDS: FERROUS SULFATE 325 MG TABLET PO SCH ×3 (09:56→21:23)
[2020-05-03] MEDS: PANTOPRAZOLE 40MG TABLET PO SCH (09:56)
[2020-05-03 10:41] LABS: INTERNATIONAL NORMALIZED RATIO 1.48 (0.93-1.1); PROTHROMBIN TIME 15.3 Seconds (9.6-11.5)
[2020-05-03] MEDS: SODIUM CHLORIDE 0.9% 1,000 ML IV SCH (10:41)
[2020-05-03 12:33] VITALS: BP 123/78
[2020-05-03] MEDS: POTASSIUM CHLORIDE 20 MEQ TAB.ER.PRT PO SCH (17:15)
[2020-05-03 19:32] VITALS: BP 117/72
[2020-05-04 01:05] VITALS: BP 112/67
[2020-05-04] MEDS: HEPARIN 5,000 UNITS/ML, 1ML SQ SCH ×3 (03:26→20:11)
[2020-05-04] MEDS: OXYcodone/APAP 5/325MG TABLET PO PRN ×3 (03:43→18:36)
[2020-05-04 05:50] LABS: MEAN CORPUSCULAR HEMOGLOBIN 32.4 pg (27.5-34.5); MEAN CORPUSCULAR HGB CONC 33.6 g/dL (33.2-36.2); MEAN CORPUSCULAR VOLUME 96.4 fL (81-97); MEAN PLATELET VOLUME 8.4 fL (7.4-10.4); PLATELET COUNT 181 x10^3/uL (130-400); RED BLOOD COUNT 3.63 x10^6/uL (4.38-5.82); RED CELL DISTRIBUTION WIDTH 15.4 % (9.4-14.8)
[2020-05-04 05:57] LABS: ALBUMIN 1.4 g/dL (3.4-5.0); ANION GAP 9 mmol/L (5-15); CALCIUM 7.5 mg/dL (8.5-10.1); CHLORIDE 102 mmol/L (98-107)
[2020-05-04 06:01] LABS: ALANINE AMINOTRANSFERASE 41 U/L (12-78); ALKALINE PHOSPHATASE 206 U/L (45-117); CREATININE 0.78 mg/dL (0.7-1.3); TOTAL PROTEIN 6.6 g/dL (6.4-8.2)
[2020-05-04 06:25] LABS: MD YES
[2020-05-04 06:26] LABS: BANDS%(MANUAL) 2 % (0-7); EOS% (MANUAL) 3 % (1-7); LYMPHS% (MANUAL) 4 % (22-44); METAMYELOCYTES% (MANUAL) 1 % (0-1); MONOS% (MANUAL) 3 % (2-9); SEG#(MANUAL) 17.49 x10^3/uL (1.8-6.8); SEGS% (MANUAL) 87 % (42-75)
[2020-05-04 06:27] LABS: ANISOCYTOSIS 1+; POLYCHROMASIA 1+
[2020-05-04 06:28] LABS: PMNS WITH VACUOLES 1+
[2020-05-04 06:29] LABS: <PLATELET ESTIMATE> DECREASED; <PLT MORPHOLOGY> NORMAL PLT MORPH
[2020-05-04 07:30] VITALS: BP 128/83
[2020-05-04] MEDS: FERROUS SULFATE 325 MG TABLET PO SCH ×3 (09:17→20:11)
[2020-05-04] MEDS: POTASSIUM CHLORIDE 20 MEQ TAB.ER.PRT PO SCH ×2 (09:18→15:42)
[2020-05-04] MEDS: MULTIVITAMIN 1 TABLET PO SCH (09:18)
[2020-05-04] MEDS: THIAMINE 100MG TABLET PO SCH (09:18)
[2020-05-04] MEDS: FOLIC ACID 1 MG TABLET PO SCH (09:18)
[2020-05-04] MEDS: MULTIVITAMINS/MINERALS TABLET PO SCH (09:18)
[2020-05-04] MEDS: PANTOPRAZOLE 40MG TABLET PO SCH (09:18)
[2020-05-04 14:07] VITALS: BP 125/75
[2020-05-04] MEDS: VANCOMYCIN 1,700 MG in SODIUM CHLORIDE 0.9% 250 ML IV SCH (15:42)
[2020-05-04 19:59] VITALS: BP 129/76
[2020-05-05] MEDS: OXYcodone/APAP 5/325MG TABLET PO PRN ×3 (00:15→20:18)
[2020-05-05 02:00] VITALS: BP 124/72
[2020-05-05] MEDS: HEPARIN 5,000 UNITS/ML, 1ML SQ SCH ×3 (02:59→20:18)
[2020-05-05 06:39] LABS: MEAN CORPUSCULAR HEMOGLOBIN 32.6 pg (27.5-34.5); MEAN CORPUSCULAR HGB CONC 33.3 g/dL (33.2-36.2); MEAN CORPUSCULAR VOLUME 97.7 fL (81-97); MEAN PLATELET VOLUME 8.4 fL (7.4-10.4); PLATELET COUNT 195 x10^3/uL (130-400); RED CELL DISTRIBUTION WIDTH 15.5 % (9.4-14.8)
[2020-05-05 06:53] LABS: ALBUMIN 1.5 g/dL (3.4-5.0); ANION GAP 6 mmol/L (5-15); CALCIUM 7.8 mg/dL (8.5-10.1); CHLORIDE 104 mmol/L (98-107)
[2020-05-05 06:57] LABS: ALANINE AMINOTRANSFERASE 43 U/L (12-78); ALKALINE PHOSPHATASE 214 U/L (45-117); BILIRUBIN,TOTAL 3.3 mg/dL (0.2-1.0); CREATININE 0.77 mg/dL (0.7-1.3)
[2020-05-05 07:36] LABS: MD YES
[2020-05-05 07:45] LABS: <PLATELET ESTIMATE> ADEQUATE; <PLT MORPHOLOGY> NORMAL PLT MORPH; ANISOCYTOSIS 1+; BAND#(MANUAL) 0.53 x10^3/uL; BANDS%(MANUAL) 3 % (0-7); EOS#(MANUAL) 0.18 x10^3/uL (0.0-0.4); EOS% (MANUAL) 1 % (1-7); LYMPH#(MANUAL) 1.23 x10^3/uL (1-3.4); LYMPHS% (MANUAL) 7 % (22-44); METAMYELOCYTES# (MANUAL) 0.35 x10^3/uL (0-0); METAMYELOCYTES% (MANUAL) 2 % (0-1); MONOS#(MANUAL) 1.41 x10^3/uL (0.3-2.7); MONOS% (MANUAL) 8 % (2-9); MYELOCYTES# (MANUAL) 0.53 x10^3/uL (0-0); MYELOCYTES% (MANUAL) 3 % (0-0); PMNS WITH VACUOLES 1+; POLYCHROMASIA 1+; SEG#(MANUAL) 13.38 x10^3/uL (1.8-6.8); SEGS% (MANUAL) 76 % (42-75); TOXIC GRAN 1+
[2020-05-05] MEDS: POTASSIUM CHLORIDE 20 MEQ TAB.ER.PRT PO SCH (08:03)
[2020-05-05] MEDS: MULTIVITAMIN 1 TABLET PO SCH (08:04)
[2020-05-05] MEDS: THIAMINE 100MG TABLET PO SCH (08:05)
[2020-05-05] MEDS: FERROUS SULFATE 325 MG TABLET PO SCH ×3 (08:05→20:16)
[2020-05-05] MEDS: FOLIC ACID 1 MG TABLET PO SCH (08:07)
[2020-05-05] MEDS: MULTIVITAMINS/MINERALS TABLET PO SCH (08:07)
[2020-05-05] MEDS: CEFTRIAXONE PMX 2GM/50ML 50 ML IV SCH (09:50)
[2020-05-05] MEDS: PANTOPRAZOLE 40MG TABLET PO SCH (09:51)
[2020-05-05] MEDS: CYCLOBENZAPRINE 10 MG TABLET PO PRN ×2 (12:41→23:31)
[2020-05-05 14:18] VITALS: BP 109/69
[2020-05-05 19:28] VITALS: BP 114/70
[2020-05-06 00:34] VITALS: BP 134/75
[2020-05-06] MEDS: HEPARIN 5,000 UNITS/ML, 1ML SQ SCH ×3 (03:33→20:29)
[2020-05-06 06:21] LABS: MEAN CORPUSCULAR HEMOGLOBIN 32.4 pg (27.5-34.5); MEAN CORPUSCULAR HGB CONC 33.5 g/dL (33.2-36.2); MEAN CORPUSCULAR VOLUME 96.8 fL (81-97); MEAN PLATELET VOLUME 8.5 fL (7.4-10.4); PLATELET COUNT 184 x10^3/uL (130-400); RED BLOOD COUNT 3.41 x10^6/uL (4.38-5.82); RED CELL DISTRIBUTION WIDTH 15.3 % (9.4-14.8)
[2020-05-06 06:27] LABS: CHLORIDE 105 mmol/L (98-107)
[2020-05-06 06:36] LABS: ALANINE AMINOTRANSFERASE 43 U/L (12-78); ALBUMIN 1.5 g/dL (3.4-5.0); ALKALINE PHOSPHATASE 229 U/L (45-117); ANION GAP 8 mmol/L (5-15); BILIRUBIN,TOTAL 2.8 mg/dL (0.2-1.0); CALCIUM 7.5 mg/dL (8.5-10.1); CREATININE 0.72 mg/dL (0.7-1.3)
[2020-05-06] MEDS: PANTOPRAZOLE 40MG TABLET PO SCH (06:37)
[2020-05-06] MEDS: OXYcodone/APAP 5/325MG TABLET PO PRN ×2 (06:39→14:09)
[2020-05-06 06:41] LABS: MD YES
[2020-05-06 06:43] LABS: ANISOCYTOSIS 1+; BAND#(MANUAL) 0.85 x10^3/uL; BANDS%(MANUAL) 5 % (0-7); LYMPH#(MANUAL) 1.53 x10^3/uL (1-3.4); LYMPHS% (MANUAL) 9 % (22-44); METAMYELOCYTES# (MANUAL) 0.17 x10^3/uL (0-0); METAMYELOCYTES% (MANUAL) 1 % (0-1); MONOS#(MANUAL) 0.51 x10^3/uL (0.3-2.7); MONOS% (MANUAL) 3 % (2-9); MYELOCYTES# (MANUAL) 0.17 x10^3/uL (0-0); MYELOCYTES% (MANUAL) 1 % (0-0); POLYCHROMASIA 1+; SEG#(MANUAL) 13.77 x10^3/uL (1.8-6.8); SEGS% (MANUAL) 81 % (42-75)
[2020-05-06 06:44] LABS: <PLATELET ESTIMATE> ADEQUATE; <PLT MORPHOLOGY> NORMAL PLT MORPH
[2020-05-06] MEDS: FERROUS SULFATE 325 MG TABLET PO SCH ×3 (08:58→20:29)
[2020-05-06] MEDS: MULTIVITAMINS/MINERALS TABLET PO SCH (08:59)
[2020-05-06] MEDS: FOLIC ACID 1 MG TABLET PO SCH (08:59)
[2020-05-06] MEDS: THIAMINE 100MG TABLET PO SCH (08:59)
[2020-05-06] MEDS: CEFTRIAXONE PMX 2GM/50ML 50 ML IV SCH (09:00)
[2020-05-06] MEDS: MULTIVITAMIN 1 TABLET PO SCH (09:00)
[2020-05-06 13:02] VITALS: BP 132/86
[2020-05-06 19:53] VITALS: BP 118/74
[2020-05-07] MEDS: HEPARIN 5,000 UNITS/ML, 1ML SQ SCH ×3 (03:13→16:44)
[2020-05-07] MEDS: OXYcodone/APAP 5/325MG TABLET PO PRN ×4 (03:13→20:45)
[2020-05-07 05:55] LABS: MEAN CORPUSCULAR HEMOGLOBIN 32.6 pg (27.5-34.5); MEAN CORPUSCULAR HGB CONC 33.4 g/dL (33.2-36.2); MEAN CORPUSCULAR VOLUME 97.6 fL (81-97); MEAN PLATELET VOLUME 8.5 fL (7.4-10.4); PLATELET COUNT 188 x10^3/uL (130-400); RED BLOOD COUNT 3.37 x10^6/uL (4.38-5.82); RED CELL DISTRIBUTION WIDTH 15.6 % (9.4-14.8)
[2020-05-07 06:06] LABS: ALBUMIN 1.5 g/dL (3.4-5.0); ANION GAP 7 mmol/L (5-15); CALCIUM 7.5 mg/dL (8.5-10.1); CHLORIDE 104 mmol/L (98-107)
[2020-05-07 06:09] LABS: ALANINE AMINOTRANSFERASE 43 U/L (12-78); ALKALINE PHOSPHATASE 260 U/L (45-117); BILIRUBIN,TOTAL 2.4 mg/dL (0.2-1.0); CREATININE 0.73 mg/dL (0.7-1.3); TOTAL PROTEIN 7.3 g/dL (6.4-8.2)
[2020-05-07 06:35] LABS: MD YES
[2020-05-07 06:36] LABS: ANISOCYTOSIS 1+; BAND#(MANUAL) 0.64 x10^3/uL; BANDS%(MANUAL) 4 % (0-7); EOS#(MANUAL) 0.16 x10^3/uL (0.0-0.4); EOS% (MANUAL) 1 % (1-7); LYMPH#(MANUAL) 0.64 x10^3/uL (1-3.4); LYMPHS% (MANUAL) 4 % (22-44); MONOS#(MANUAL) 0.96 x10^3/uL (0.3-2.7); MONOS% (MANUAL) 6 % (2-9); MYELOCYTES# (MANUAL) 0.32 x10^3/uL (0-0); MYELOCYTES% (MANUAL) 2 % (0-0); POLYCHROMASIA 1+; SEG#(MANUAL) 13.28 x10^3/uL (1.8-6.8); SEGS% (MANUAL) 83 % (42-75)
[2020-05-07 06:37] LABS: <PLATELET ESTIMATE> ADEQUATE; <PLT MORPHOLOGY> NORMAL PLT MORPH; PMNS WITH VACUOLES 1+; TOXIC GRAN 1+
[2020-05-07] MEDS: MULTIVITAMIN 1 TABLET PO SCH ×2 (07:48→08:14)
[2020-05-07] MEDS: THIAMINE 100MG TABLET PO SCH (08:13)
[2020-05-07] MEDS: FOLIC ACID 1 MG TABLET PO SCH (08:13)
[2020-05-07] MEDS: MULTIVITAMINS/MINERALS TABLET PO SCH (08:14)
[2020-05-07] MEDS: PANTOPRAZOLE 40MG TABLET PO SCH (08:14)
[2020-05-07] MEDS: FERROUS SULFATE 325 MG TABLET PO SCH ×3 (08:14→20:45)
[2020-05-07] MEDS: CEFTRIAXONE PMX 2GM/50ML 50 ML IV SCH ×2 (08:18→14:22)
[2020-05-07 15:01] VITALS: BP 131/80
[2020-05-07] MEDS: FUROSEMIDE 20 MG TABLET PO SCH (16:44)
[2020-05-07 18:56] VITALS: BP 148/82
[2020-05-08 00:26] VITALS: BP 131/79
[2020-05-08] MEDS: HEPARIN 5,000 UNITS/ML, 1ML SQ SCH ×3 (02:52→16:48)
[2020-05-08] MEDS: OXYcodone/APAP 5/325MG TABLET PO PRN ×3 (04:08→18:14)
[2020-05-08 06:19] LABS: BASOPHILS # (AUTO) 0.09 x10^3/uL (0-0.1); BASOPHILS % (AUTO) 1 % (0-1); EOSINOPHILS # (AUTO) 0.09 x10^3/uL (0-0.4); EOSINOPHILS % (AUTO) 1 % (1-7); LYMPHOCYTES # (AUTO) 0.66 x10^3/uL (1-3.4); LYMPHOCYTES % (AUTO) 5 % (22-44); MD NO; MEAN CORPUSCULAR HEMOGLOBIN 32.5 pg (27.5-34.5); MEAN CORPUSCULAR HGB CONC 33.2 g/dL (33.2-36.2); MEAN CORPUSCULAR VOLUME 97.9 fL (81-97); MEAN PLATELET VOLUME 8.1 fL (7.4-10.4); MONOCYTES # (AUTO) 0.51 x10^3/uL (0.2-0.8); MONOCYTES % (AUTO) 4 % (2-9); NEUTROPHILS # (AUTO) 11.02 x10^3/uL (1.8-6.8); NEUTROPHILS % (AUTO) 89 % (42-75); PLATELET COUNT 199 x10^3/uL (130-400); RED BLOOD COUNT 3.45 x10^6/uL (4.38-5.82); RED CELL DISTRIBUTION WIDTH 15.5 % (9.4-14.8)
[2020-05-08] MEDS ORDERED: THIAMINE 50MG TABLET ONE (08:48)
[2020-05-08] MEDS: MULTIVITAMIN 1 TABLET PO SCH (08:55)
[2020-05-08] MEDS: MULTIVITAMINS/MINERALS TABLET PO SCH (08:55)
[2020-05-08] MEDS: PANTOPRAZOLE 40MG TABLET PO SCH (08:55)
[2020-05-08] MEDS: FOLIC ACID 1 MG TABLET PO SCH (08:55)
[2020-05-08] MEDS: FUROSEMIDE 20 MG TABLET PO SCH ×2 (08:56→16:47)
[2020-05-08] MEDS: FERROUS SULFATE 325 MG TABLET PO SCH ×3 (08:56→22:08)
[2020-05-08] MEDS: THIAMINE 100MG TABLET PO SCH (08:57)
[2020-05-08 09:12] VITALS: BP 110/73
[2020-05-08] MEDS: CEFTRIAXONE PMX 2GM/50ML 50 ML IV SCH (12:21)
[2020-05-08 14:25] VITALS: BP 137/74
[2020-05-08 21:14] VITALS: BP 118/70
[2020-05-09] MEDS: HEPARIN 5,000 UNITS/ML, 1ML SQ SCH ×3 (00:22→17:00)
[2020-05-09] MEDS: OXYcodone/APAP 5/325MG TABLET PO PRN ×4 (00:22→22:04)
[2020-05-09 01:35] VITALS: BP 125/78
[2020-05-09 06:31] VITALS: BP 125/76
[2020-05-09 06:54] LABS: BASOPHILS # (AUTO) 0.05 x10^3/uL (0-0.1); BASOPHILS % (AUTO) 0 % (0-1); EOSINOPHILS # (AUTO) 0.06 x10^3/uL (0-0.4); EOSINOPHILS % (AUTO) 1 % (1-7); LYMPHOCYTES # (AUTO) 0.66 x10^3/uL (1-3.4); LYMPHOCYTES % (AUTO) 6 % (22-44); MD NO; MEAN CORPUSCULAR HEMOGLOBIN 32.6 pg (27.5-34.5); MEAN CORPUSCULAR VOLUME 98.8 fL (81-97); MEAN PLATELET VOLUME 8.4 fL (7.4-10.4); MONOCYTES # (AUTO) 0.61 x10^3/uL (0.2-0.8); MONOCYTES % (AUTO) 5 % (2-9); NEUTROPHILS # (AUTO) 10.19 x10^3/uL (1.8-6.8); NEUTROPHILS % (AUTO) 88 % (42-75); PLATELET COUNT 197 x10^3/uL (130-400); RED BLOOD COUNT 3.23 x10^6/uL (4.38-5.82); RED CELL DISTRIBUTION WIDTH 15.4 % (9.4-14.8)
[2020-05-09 07:05] LABS: ALBUMIN 1.5 g/dL (3.4-5.0); ANION GAP 8 mmol/L (5-15); CALCIUM 7.7 mg/dL (8.5-10.1); CHLORIDE 101 mmol/L (98-107)
[2020-05-09 07:10] LABS: ALANINE AMINOTRANSFERASE 41 U/L (12-78); ALKALINE PHOSPHATASE 266 U/L (45-117); CREATININE 0.77 mg/dL (0.7-1.3); TOTAL PROTEIN 7.2 g/dL (6.4-8.2)
[2020-05-09] MEDS: THIAMINE 100MG TABLET PO SCH (07:53)
[2020-05-09] MEDS: MULTIVITAMINS/MINERALS TABLET PO SCH (07:53)
[2020-05-09] MEDS: FUROSEMIDE 20 MG TABLET PO SCH ×2 (07:53→17:42)
[2020-05-09] MEDS: FERROUS SULFATE 325 MG TABLET PO SCH ×3 (07:53→20:06)
[2020-05-09] MEDS: PANTOPRAZOLE 40MG TABLET PO SCH (07:53)
[2020-05-09] MEDS: MULTIVITAMIN 1 TABLET PO SCH (07:53)
[2020-05-09] MEDS: FOLIC ACID 1 MG TABLET PO SCH (07:53)
[2020-05-09] MEDS ORDERED: POTA10CA PO (11:50)
[2020-05-09] MEDS ORDERED: AMOX1TAB64 PO (11:50)
[2020-05-09] MEDS ORDERED: FURO20TA3 PO (11:50)
[2020-05-09 12:44] VITALS: BP 108/69
[2020-05-09] MEDS: CEFTRIAXONE PMX 2GM/50ML 50 ML IV SCH (12:49)
[2020-05-09] MEDS ORDERED: ACET325T26 PO (13:21)
[2020-05-09 19:58] VITALS: BP 128/81
[2020-05-10 00:58] VITALS: BP 116/71
[2020-05-10] MEDS: HEPARIN 5,000 UNITS/ML, 1ML SQ SCH ×3 (04:31→12:18)
[2020-05-10] MEDS: OXYcodone/APAP 5/325MG TABLET PO PRN ×3 (04:31→16:52)
[2020-05-10 07:56] VITALS: BP 125/73
[2020-05-10] MEDS: FOLIC ACID 1 MG TABLET PO SCH (08:59)
[2020-05-10] MEDS: PANTOPRAZOLE 40MG TABLET PO SCH (08:59)
[2020-05-10] MEDS: FUROSEMIDE 20 MG TABLET PO SCH ×2 (08:59→16:52)
[2020-05-10] MEDS: THIAMINE 100MG TABLET PO SCH (08:59)
[2020-05-10] MEDS: FERROUS SULFATE 325 MG TABLET PO SCH ×2 (09:00→16:52)
[2020-05-10] MEDS: MULTIVITAMIN 1 TABLET PO SCH (09:00)
[2020-05-10] MEDS: MULTIVITAMINS/MINERALS TABLET PO SCH (09:00)
[2020-05-10 09:16] LABS: BASOPHILS # (AUTO) 0.03 x10^3/uL (0-0.1); BASOPHILS % (AUTO) 0 % (0-1); EOSINOPHILS # (AUTO) 0.15 x10^3/uL (0-0.4); EOSINOPHILS % (AUTO) 1 % (1-7); LYMPHOCYTES # (AUTO) 0.58 x10^3/uL (1-3.4); LYMPHOCYTES % (AUTO) 5 % (22-44); MD NO; MEAN CORPUSCULAR HEMOGLOBIN 32.8 pg (27.5-34.5); MEAN CORPUSCULAR HGB CONC 33.4 g/dL (33.2-36.2); MEAN CORPUSCULAR VOLUME 97.9 fL (81-97); MONOCYTES # (AUTO) 0.39 x10^3/uL (0.2-0.8); MONOCYTES % (AUTO) 3 % (2-9); NEUTROPHILS # (AUTO) 10.44 x10^3/uL (1.8-6.8); NEUTROPHILS % (AUTO) 90 % (42-75); PLATELET COUNT 201 x10^3/uL (130-400); RED BLOOD COUNT 3.03 x10^6/uL (4.38-5.82); RED CELL DISTRIBUTION WIDTH 15.6 % (9.4-14.8)
[2020-05-10] MEDS: CEFTRIAXONE PMX 2GM/50ML 50 ML IV SCH (12:18)
[2020-05-10 13:15] VITALS: BP 113/70
[2020-05-11] MEDS ORDERED: POTASSIUM CHLORIDE 10 MEQ TABLET.ER PO SCH (08:00)
== END 2020-05-10 18:29 | disposition home or self-care (01) | DRG 871 ==
LOC: ED 17:17 → 4WST 22:01 → UNDOADMIN 22:01 → 4WST 05-02 01:39 → 3N 05-07 12:08
PROVIDERS: ADMIT Hospitalist; ATTEND Internal Medicine
DX: A40.8 Other streptococcal sepsis (principal); N17.0 Acute kidney failure with tubular necrosis; E87.1 Hypo-osmolality and hyponatremia; K76.6 Portal hypertension; L03.115 Cellulitis of right lower limb; L03.116 Cellulitis of left lower limb; E83.39 Other disorders of phosphorus metabolism; E87.6 Hypokalemia; F10.10 Alcohol abuse, uncomplicated; I10 Essential (primary) hypertension; K70.10 Alcoholic hepatitis without ascites; K70.30 Alcoholic cirrhosis of liver without ascites; R65.20 Severe sepsis without septic shock; S70.12XA Contusion of left thigh, initial encounter; W01.0XXA Fall on same level from slipping, tripping and stumbling without subsequent striking against object, initial encounter; W22.8XXA Striking against or struck by other objects, initial encounter; D53.9 Nutritional anemia, unspecified
CPT/HCPCS: 36415; 71045; 72110; 76700; 80053; 80202; 80307; 82248; 83036; 83605; 83690; 83735; 83935; 84100; 84300; 84443; 84484; 85025; 85610; 85730; 87040; 87147; 87181; 90471; 90715; 93005; 96361; 96374; 96375; 99291; G0378; J0295; J0692; J0696; J1644; J2405; J3370; Q9967; J2270; J7030; J7040; J7050